=== PATIENT | male | born 1975 | race Caucasian/White ===

== ENCOUNTER 2020-08-25 10:08 | Emergency (ER) | payer SELFPAY ==
[~2020-08-25] VITALS: Ht 182.9 cm; Wt 97.7 kg
--- NOTE | 2020-08-25 10:23 | NUR ---
BIB EMS FROM HOME AFTER PT HAD A SZ IN BED WHILE SLEEPING AND ROLLED ON TOP OF HIS . PT WAS POST ICTAL ON EMS ARRIVAL. NOW IS AOX4. NO ORAL TRAUMA. NO INCONTINENCE. DENIES HX SZ. DENIES ETOH/DRUG USE. BLOOD NOTED IN L EAR STATES "I THINK I MIGHT'VE SCRATCHED IT. NEURO INTACT. PT RESTING ON GURNEY. NADN. MONITORS APPLIED. VSS. CALL LIGHT IN REACH. SZ PRECAUTIONS APPLIED.
[2020-08-25] MEDS ORDERED: THIAMINE 100MG TABLET ONE (10:48)
[2020-08-25] MEDS ORDERED: LORazepam 2 MG/ML, 1ML ONE (10:48)
[2020-08-25] MEDS ORDERED: SODIUM CHLORIDE FLUSH 10ML SYR IVF ONE (11:00)
[2020-08-25] MEDS ORDERED: LORazepam 2 MG/ML, 1ML IVPush PRN (11:00)
[2020-08-25] MEDS ORDERED: SODIUM CHLORIDE 0.9% 1,000ML IVBOLUS ONE (11:00)
[2020-08-25] MEDS ORDERED: THIAMINE 100MG TABLET PO ONE (11:00)
[2020-08-25] MEDS ORDERED: LORazepam 2 MG/ML, 1ML IVPush ONE (11:00)
[2020-08-25 11:12] LABS: BASOPHILS % (AUTO) 1 % (0-1); EOSINOPHILS % (AUTO) 1 % (1-7); LYMPHOCYTES % (AUTO) 16 % (22-44); MEAN CORPUSCULAR HEMOGLOBIN 36.6 pg (27.5-34.5); MEAN PLATELET VOLUME 8.3 fL (7.4-10.4); MONOCYTES % (AUTO) 16 % (2-9); NEUTROPHILS % (AUTO) 67 % (42-75); PLATELET COUNT 192 x10^3/uL (130-400); RED BLOOD COUNT 4.73 x10^6/uL (4.38-5.82)
--- NOTE | 2020-08-25 11:13 | NUR ---
PT RESTING ON GURNEY. NADN. CABRERA.
[2020-08-25 11:16] LABS: CALCIUM 9.9 mg/dL (8.5-10.1); CHLORIDE 99 mmol/L (98-107)
[2020-08-25 11:22] LABS: ALANINE AMINOTRANSFERASE 208 U/L (12-78); ALBUMIN 3.7 g/dL (3.4-5.0); ALKALINE PHOSPHATASE 265 U/L (45-117); ANION GAP 13 mmol/L (5-15); CREATININE 1.01 mg/dL (0.7-1.3); TOTAL PROTEIN 8.1 g/dL (6.4-8.2)
[2020-08-25 11:29] LABS: AMPHETAMINE SCREEN, URINE Negative (Negative); BARBITURATE SCREEN, URINE Negative (Negative); BENZODIAZEPINE SCREEN, URINE Negative (Negative); CANNABINOID SCREEN, URINE Positive (Negative); COCAINE SCREEN, URINE Negative (Negative); METHADONE SCREEN, URINE Negative (Negative); OPIATE SCREEN, URINE Negative (Negative)
--- NOTE | 2020-08-25 12:21 | NUR ---
PT RESTING ON GURNEY. NADN. CABRERA.
--- NOTE | 2020-08-25 12:45 | NUR ---
PT CHART REVIEWED AND PLACED FOR RECHECK.
[2020-08-25 13:02] VITALS: BP 138/103
--- NOTE | 2020-08-25 13:04 | NUR ---
PT RESTING ON GURNEY. NADN. CABRERA.
--- NOTE | 2020-08-25 13:09 | NUR ---
ERP DR. ROY AT BEDSIDE FOR RE-EVAL.
== END 2020-08-25 13:23 | disposition left against medical advice (07) ==
LOC: ED 12:54
DX: R56.9 Unspecified convulsions (principal); K70.10 Alcoholic hepatitis without ascites; F10.139 Alcohol abuse with withdrawal, unspecified; Y90.0 Blood alcohol level of less than 20 mg/100 ml; R00.0 Tachycardia, unspecified; I10 Essential (primary) hypertension; J45.909 Unspecified asthma, uncomplicated; F17.200 Nicotine dependence, unspecified, uncomplicated
CPT/HCPCS: 36415; 70450; 80053; 80307; 80320; 85025; 93005; 96361; 96374; 99285; J2060; J7030; G0480